=== PATIENT | female | born 1955 | race Caucasian/White ===

== ENCOUNTER 2019-10-13 18:15 | Emergency (ER) | payer MEDICAID ==
[~2019-10-13] VITALS: Ht 162.6 cm; Wt 71.7 kg
--- NOTE | 2019-10-13 18:23 | NUR ---
Patient to ER bed 06 to gown for evaluation. Side rails up.
--- NOTE | 2019-10-13 18:25 | NUR ---
Patient arrived in the ED c/o left lower abdominal pain and hematuria for the last 2 days. Denied any chest pain or shortness of breath. Denied any fevers, chills, nausea or vomiting. Patient is alert and oriented x4, respirations even and unlabored, speaking in full sentences. VSS, pain level 7/10. Patient is on wheelchair. Informed of the approximate wait time. Instructed to notify ED staff for any changes in condition or worsening of symptoms while waiting to be seen by an ED provider. Patient verbalized understanding.
[2019-10-13 18:30] VITALS: BP_SYST 112
--- NOTE | 2019-10-13 18:33 | NUR ---
ER Dr. Benitez at bedside examining patient.
--- NOTE | 2019-10-13 18:40 | NUR ---
Patient is unable to provide urine sample at this time.
[2019-10-13] MEDS ORDERED: KETOROLAC TROMETHAMINE 60 MG/2 ML VIAL IM ONE (18:45)
--- NOTE | 2019-10-13 18:59 | NUR ---
Administered Toradol IM as ordered by Dr. Benitez. Patient tolerated the medications well. See eMAR for details.
[2019-10-13 19:12] LABS: BASOPHILS # (AUTO) 0.1 K/uL (0.0-0.2); BASOPHILS % (AUTO) 0.6 % (0.0-2.0); EOSINOPHILS # (AUTO) 0.2 K/uL (0.0-0.4); EOSINOPHILS % (AUTO) 1.8 % (0.0-4.0); HEMOGLOBIN 14.2 g/dL (12.0-16.0); LYMPHOCYTES # (AUTO) 2.3 K/uL (1.0-5.5); LYMPHOCYTES % (AUTO) 23.5 % (20.5-51.5); MEAN CORPUSCULAR HEMOGLOBIN 26 pg (27-31); MEAN CORPUSCULAR HGB CONC 32 % (32-36); MEAN CORPUSCULAR VOLUME 81 fL (79.0-98.0); MONOCYTES # (AUTO) 0.6 K/uL (0.0-1.0); MONOCYTES % (AUTO) 6.3 % (1.7-9.3); NEUTROPHILS # (AUTO) 6.6 K/uL (1.8-7.7); NEUTROPHILS % (AUTO) 67.8 % (40.0-70.0); PLATELET COUNT (AUTO) 239 K/uL (130-430); RED BLOOD CELL COUNT(AUTO) 5.42 MIL/uL (4.2-6.2); WHITE BLOOD COUNT (AUTO) 9.7 K/uL (4.8-10.8)
[2019-10-13 19:28] LABS: CALCIUM 9.2 mg/dL (8.4-11.0); CREATININE 0.9 mg/dL (0.55-1.30); POTASSIUM 4.1 mmol/L (3.5-5.1)
--- NOTE | 2019-10-13 19:30 | NUR ---
Pt report received. Pt AAOx4, VSS, verbalizes improvement in pain. No needs at this time.
--- NOTE | 2019-10-13 20:00 | NUR ---
Pt to restroom, urine specimen collected and sent to lab.
[2019-10-13 20:09] LABS: BILIRUBIN,URINE NEGATIVE (NEGATIVE); BLOOD, URINE 3+ (NEGATIVE); CLARITY/URINE TURBID (CLEAR); COLOR,URINE BROWN (YELLOW); GLUCOSE,URINE NEGATIVE (NEGATIVE); KETONES,URINE TRACE (NEGATIVE); LEUKOCYTE ESTERASE ,URINE TRACE (NEGATIVE); NITRITE, URINE POSITIVE (NEGATIVE); PH,URINE 6.5 (5.0-8.0); PROTEIN URINE 3+ (NEGATIVE)
[2019-10-13 20:17] LABS: BACTERIA,URINE MANY /HPF (None Seen); RBC,URINE >100 /HPF (0-3)
[2019-10-13 20:18] LABS: CALCIUM OXALATE CRYSTALS,UR 0-10 /HPF (None Seen)
--- NOTE | 2019-10-13 20:30 | NUR ---
Dr. Quiles at pt bedside discussing test results and POC.
[2019-10-13] MEDS ORDERED: NITROFURANTOIN MONOHYD/M-CRYST 100 MG CAPSULE PO ONE (20:45)
[2019-10-13 21:20] VITALS: BP_SYST 149
== END 2019-10-13 21:20 | disposition home or self-care (01) ==
LOC: SED 18:15
DX: N39.0 Urinary tract infection, site not specified (principal); R31.9 Hematuria, unspecified; Z88.0 Allergy status to penicillin
CPT/HCPCS: 36415; 80048; 81000; 85025; 87086; 96372; 99283; J1885